=== PATIENT | female | born 1960 | race Caucasian/White ===

== ENCOUNTER 2018-11-19 03:34 | Emergency (ER) | payer BC ==
[2018-11-19 06:42] LABS: URINE BLOOD (Dip) POC 3+ (NEGATIVE); URINE GLUCOSE (Dip) POC Negative (NEGATIVE); URINE KETONES (Dip) POC Negative (NEGATIVE); URINE LEUKOCYTE EST (Dip) POC 3+ (NEGATIVE); URINE NITRITE (Dip) POC Negative (NEGATIVE); URINE TOTAL PROTEIN POC Negative (NEGATIVE)
== END 2018-11-19 07:27 | disposition home or self-care (01) ==
LOC: FTE 03:34
DX: N39.0 Urinary tract infection, site not specified (principal); Z79.84 Long term (current) use of oral hypoglycemic drugs
CPT/HCPCS: 81003; 99283